=== PATIENT | male | born 1965 | race Asian ===

== ENCOUNTER 2021-02-22 12:36 | Emergency (ER) | payer OTHER ==
[~2021-02-22] VITALS: Ht 167.6 cm; Wt 68.2 kg
[~2021-02-22 12:36] MED LIST: CARB200T6 PO; PHEN100C23 PO
[2021-02-22] MEDS ORDERED: PERTUSS(ACELL),DIPH,TET VAC/PF 0.5 ML SYRINGE IM. ONE (13:00)
[2021-02-22 14:12] VITALS: BP 129/76
== END 2021-02-22 14:20 | disposition home or self-care (01) ==
LOC: EMS 12:38
DX: S05.32XA Ocular laceration without prolapse or loss of intraocular tissue, left eye, initial encounter (principal); S05.31XA Ocular laceration without prolapse or loss of intraocular tissue, right eye, initial encounter; R56.9 Unspecified convulsions; X58.XXXA Exposure to other specified factors, initial encounter; Y93.89 Activity, other specified; Y92.89 Other specified places as the place of occurrence of the external cause; Y99.8 Other external cause status
CPT/HCPCS: 12011; 70450; 90471; 90715; 99284

== ENCOUNTER 2021-12-19 17:56 | Inpatient (IN) | payer OTHER ==
[~2021-12-19] VITALS: Ht 162.6 cm; Wt 65.9 kg
[~2021-12-19 17:56] MED LIST changes: +PHEN100C9 PO
[2021-12-19] MEDS ORDERED: SODIUM CHLORIDE 0.9% 1,000 ML IV ONE (18:00)
[2021-12-19] MEDS ORDERED: LevETIRAcetam 1,000 MG in DEXTROSE 5%-WATER 100 ML IV ONE (18:00)
[2021-12-19] MEDS ORDERED: LORazepam 2 MG/ML VIAL IVP ONE ×2 (18:00→20:15)
[2021-12-19 18:14] LABS: BASOPHILS % (AUTO) 0.4 % (0.0-2.0); EOSINOPHILS % (AUTO) 0.1 % (1.0-6.0); HEMATOCRIT 38.1 % (41-53); HEMOGLOBIN 12.4 g/dL (13.5-17.5); LYMPHOCYTES # (AUTO) 2.4 K/uL (1.0-4.8); LYMPHOCYTES % (AUTO) 18.5 % (22.0-44.0); MEAN CORPUSCULAR HEMOGLOBIN 30.3 pg (26.0-34.0); MEAN CORPUSCULAR HGB CONC 32.6 G/dL (31.0-37.0); MEAN CORPUSCULAR VOLUME 93 fL (80-100); MONOCYTES # (AUTO) 0.8 K/uL (0.1-1.0); MONOCYTES % (AUTO) 6.4 % (2.0-9.0); NEUTROPHILS # (AUTO) 9.7 K/uL (1.8-7.7); NEUTROPHILS % (AUTO) 74.6 % (40.0-70.0); PLATELET COUNT (AUTO) 391 K/uL (150-450); RED CELL DISTRIBUTION WIDTH 13.5 % (11.5-14.5)
[2021-12-19 18:22] LABS: ANION GAP 21 mmol/L (8-16); CALCIUM, TOTAL 9.4 mg/dL (8.8-10.5); CARBON DIOXIDE 18 mmol/L (22-29); CHLORIDE 97 mmol/L (98-107); CREATININE 1.24 mg/dL (0.60-1.30); GLOMERULAR FILTR. RATE CALC 60 mL/min (>60); GLUCOSE,RANDOM 167 mg/dL (70-110); POTASSIUM 3.6 mmol/L (3.5-5.1); SODIUM SERUM 136 mmol/L (136-145); UREA NITROGEN, BLOOD 18 mg/dL (7-18)
[2021-12-19 18:28] LABS: ALANINE AMINOTRANSFERASE 28 U/L (12-78); ALBUMIN 3.7 g/dL (3.4-5.0); ALKALINE PHOSPHATASE 144 U/L (46-116); ASPARTATE AMINOTRANSFERASE 25 U/L (15-37); BILIRUBIN,TOTAL 0.2 mg/dL (0.1-1.0); CARBAMAZEPINE (TEGRETOL) 5.2 mcg/mL (4.0-12.0); LIPASE 163 U/L (73-393); TOTAL PROTEIN, SERUM 8.4 g/dL (6.4-8.2)
[2021-12-19 18:36] LABS: PHENYTOIN (DILANTIN) 0.5 mcg/mL (10.0-20.0)
[2021-12-19 18:49] LABS: COVID AG,FIA SOURCE NASOPHARYNGEAL
[2021-12-19] MEDS ORDERED: ACETAMINOPHEN 325 MG TABLET PO PRN (19:45)
[2021-12-19] MEDS ORDERED: PHENYTOIN SODIUM 1,000 MG in SODIUM CHLORIDE 0.9% 150 ML IV ONE (19:45)
[2021-12-19] MEDS ORDERED: ONDANSETRON HCL 4 MG/2 ML VIAL IVP PRN (19:45)
[2021-12-19] MEDS ORDERED: 0.9% SODIUM CHLORIDE 10 ML SYRINGE IVP PRN (19:45)
[2021-12-19] MEDS: LORazepam 2 MG/ML VIAL IVP ONE ×2 (20:11→20:39)
[2021-12-19] MEDS: CarBAMazepine 200 MG TABLET PO SCH (21:00)
[2021-12-19] MEDS ORDERED: MIDAZOLAM HCL 5 MG/ML VIAL IVP ONE (21:00)
[2021-12-19 23:17] LABS: APPEARANCE,URINE CLEAR (CLEAR); BILIRUBIN,URINE NEGATIVE (NEGATIVE); GLUCOSE, URINE (UA) NEGATIVE (NEGATIVE); KETONES,URINE NEGATIVE (NEGATIVE); LEUKOCYTE ESTERASE ,URINE NEGATIVE (NEGATIVE); NITRATE,URINE NEGATIVE (NEGATIVE); OCCULT BLOOD,URINE NEGATIVE (NEGATIVE); PH,URINE 6.5 (5.0-8.0); PROTEIN,URINE NEGATIVE (NEGATIVE); SPECIFIC GRAVITIY, URINE 1.005 (1.003-1.030); UROBILINOGEN,URINE <=1.0 mg/dL (<=1.0)
[2021-12-19 23:24] LABS: AMPHET/METH SCREEN,URINE NEGATIVE (NEGATIVE); BARBITURATE SCREEN, URINE NEGATIVE (NEGATIVE); BENZODIAZEPINES SCREEN,URINE POSITIVE (NEGATIVE); CANNABINOID SCREEN,URINE NEGATIVE (NEGATIVE); COCAINE SCREEN,URINE NEGATIVE (NEGATIVE); METHADONE SCREEN, URINE NEGATIVE (NEGATIVE); OPIATE SCREEN,URINE NEGATIVE (NEGATIVE)
[2021-12-19 23:43] LABS: PHENCYCLIDINE SCREEN,URINE NEGATIVE (NEGATIVE)
[2021-12-19 23:53] LABS: BACTERIA,URINE None Seen /HPF (None Seen); RBC,URINE None Seen /HPF (0-2); WBC,URINE None Seen /HPF (0-5)
[2021-12-20] MEDS ORDERED: INFLUENZA VIRUS VACCINE QVS 2021-22 (6MO+)/PF 60 MCG/0.5 ML SYRINGE IM. ONE (04:30)
[2021-12-20] MEDS ORDERED: PHENYTOIN SODIUM 100 MG ER CAPSULE PO SCH (09:00)
[2021-12-20 09:56] VITALS: BP 120/62
[2021-12-20] MEDS: CarBAMazepine 200 MG TABLET PO SCH ×3 (11:18→20:38)
[2021-12-20] MEDS ORDERED: IPRATROPIUM BROMIDE 0.5 MG/2.5 ML NEB SOLUTION NEB PRN (13:00)
[2021-12-20] MEDS ORDERED: ALBUTEROL SULFATE 2.5 MG/0.5 ML NEB SOLUTION NEB PRN (13:00)
[2021-12-20] MEDS ORDERED: ZOLPIDEM TARTRATE 5 MG TABLET PO PRN (13:00)
[2021-12-20] MEDS ORDERED: ONDANSETRON HCL 4 MG/2 ML VIAL IVP PRN (13:00)
[2021-12-20] MEDS ORDERED: BISACODYL 10 MG RECTAL RECTAL SUPPOSITORY PR PRN (13:00)
[2021-12-20] MEDS ORDERED: MAGNESIUM HYDROXIDE SUSPENSION 30 ML UDCUP PO PRN (13:00)
[2021-12-20] MEDS ORDERED: ACETAMINOPHEN 325 MG TABLET PO PRN (13:00)
[2021-12-20] MEDS ORDERED: LORazepam 2 MG/ML VIAL IVP PRN (13:00)
[2021-12-20] MEDS ORDERED: HYDROCODONE/ACETAMINOPHEN 5-325 MG TABLET PO PRN (13:00)
[2021-12-20] MEDS ORDERED: MORPHINE SULFATE 2 MG/ML SYRINGE IVP PRN (13:00)
[2021-12-20 13:43] VITALS: BP 110/63
[2021-12-20] MEDS: PHENYTOIN SODIUM 100 MG ER CAPSULE PO SCH (16:09)
[2021-12-20] MEDS: HEPARIN SODIUM,PORCINE 5,000 UNITS/ML VIAL SQ SCH ×2 (16:10→23:36)
[2021-12-20 16:56] VITALS: BP 108/62
[2021-12-20 20:34] VITALS: BP 116/80
[2021-12-20] MEDS: LevETIRAcetam 500 MG TABLET PO SCH (20:37)
[2021-12-21 00:30] VITALS: BP 126/70
[2021-12-21 04:00] VITALS: BP 121/76
[2021-12-21 08:35] VITALS: BP 119/74
[2021-12-21] MEDS: PANTOPRAZOLE SODIUM 40 MG/VIAL IVP SCH ×2 (09:00→09:50)
[2021-12-21] MEDS: HEPARIN SODIUM,PORCINE 5,000 UNITS/ML VIAL SQ SCH (09:50)
[2021-12-21] MEDS: CarBAMazepine 200 MG TABLET PO SCH (09:53)
[2021-12-21] MEDS: PHENYTOIN SODIUM 100 MG ER CAPSULE PO SCH (09:53)
[2021-12-21] MEDS: LevETIRAcetam 500 MG TABLET PO SCH (09:53)
[2021-12-21 12:00] VITALS: BP 123/81
[2021-12-21] MEDS ORDERED: LEVE500T8 PO (15:22)
[2021-12-21] MEDS ORDERED: PHENY100 PO (15:22)
[2021-12-21] MEDS ORDERED: CARB200T6 PO ×2 (15:27→15:30)
== END 2021-12-21 16:40 | disposition home or self-care (01) | DRG 53 ==
LOC: EMS 17:59 → 5N 21:59
PROVIDERS: ADMIT Hospitalist; ATTEND Hospitalist
DX: G40.909 Epilepsy, unspecified, not intractable, without status epilepticus (principal); Z20.822 Contact with and (suspected) exposure to COVID-19; Z79.899 Other long term (current) drug therapy
CPT/HCPCS: 70450; 71045; 80053; 80156; 80185; 81001; 83690; 84484; 85025; 93005; 99291; C9113; G0480; J0712; J1165; J1644; J2060; J2250; J7030; J7050; J7060; 36415-L1; 36415-TC

== ENCOUNTER 2022-04-22 20:48 | Emergency (ER) | payer OTHER ==
[~2022-04-22] VITALS: Ht 162.6 cm; Wt 61.4 kg
[~2022-04-22 20:48] MED LIST changes: +LEVE500T8 PO; -PHEN100C23 PO; -PHEN100C9 PO; +PHENY100 PO
[2022-04-22] MEDS ORDERED: SODIUM CHLORIDE 0.9% 1,000 ML IV ONE (22:15)
[2022-04-22] MEDS ORDERED: LevETIRAcetam 1,000 MG in DEXTROSE 5%-WATER 100 ML IV ONE (22:45)
[2022-04-22 22:55] LABS: BASOPHILS % (AUTO) 0.3 % (0.0-2.0); EOSINOPHILS % (AUTO) 0.1 % (1.0-6.0); HEMATOCRIT 40.7 % (41-53); HEMOGLOBIN 13.3 g/dL (13.5-17.5); LYMPHOCYTES # (AUTO) 1.1 K/uL (1.0-4.8); LYMPHOCYTES % (AUTO) 19.9 % (22.0-44.0); MEAN CORPUSCULAR HEMOGLOBIN 29.2 pg (26.0-34.0); MEAN CORPUSCULAR HGB CONC 32.6 G/dL (31.0-37.0); MEAN CORPUSCULAR VOLUME 90 fL (80-100); NEUTROPHILS # (AUTO) 3.3 K/uL (1.8-7.7); NEUTROPHILS % (AUTO) 61.7 % (40.0-70.0); PLATELET COUNT (AUTO) 196 K/uL (150-450); RED BLOOD CELL COUNT(AUTO) 4.55 MIL/uL (4.50-5.90); RED CELL DISTRIBUTION WIDTH 13.6 % (11.5-14.5)
[2022-04-22 22:56] LABS: ANION GAP 3 mmol/L (8-16); CALCIUM, TOTAL 8.1 mg/dL (8.8-10.5); CARBON DIOXIDE 30 mmol/L (22-29); CHLORIDE 107 mmol/L (98-107); GLUCOSE,RANDOM 106 mg/dL (70-110); SODIUM SERUM 140 mmol/L (136-145); UREA NITROGEN, BLOOD 20 mg/dL (7-18)
[2022-04-22 23:03] LABS: GLOMERULAR FILTR. RATE CALC > 60 mL/min (>60)
[2022-04-22 23:11] LABS: ALANINE AMINOTRANSFERASE 61 U/L (12-78); ALBUMIN 3.2 g/dL (3.4-5.0); ALKALINE PHOSPHATASE 97 U/L (46-116); ASPARTATE AMINOTRANSFERASE 103 U/L (15-37); BILIRUBIN,TOTAL 0.1 mg/dL (0.1-1.0); TOTAL PROTEIN, SERUM 6.6 g/dL (6.4-8.2)
[2022-04-22 23:42] VITALS: BP 100/58
[2022-04-23] MEDS ORDERED: PHENY100 PO
[2022-04-23] MEDS ORDERED: CARB200T6 PO
[2022-04-23] MEDS ORDERED: LEVE500T8 PO
== END 2022-04-23 00:20 | disposition home or self-care (01) ==
LOC: EMS 20:52
DX: G40.89 Other seizures (principal); Z86.69 Personal history of other diseases of the nervous system and sense organs
CPT/HCPCS: 99284; 96365; 80053; 85025; 36415; J0712; J7060

== ENCOUNTER 2022-06-22 03:08 | Emergency (ER) | payer OTHER ==
[~2022-06-22] VITALS: Ht 162.6 cm; Wt 63.0 kg
[2022-06-22] MEDS ORDERED: LevETIRAcetam 1,000 MG in DEXTROSE 5%-WATER 100 ML IV ONE (03:15)
[2022-06-22 03:33] LABS: BASOPHILS % (AUTO) 0.2 % (0.0-2.0); EOSINOPHILS % (AUTO) 3.7 % (1.0-6.0); HEMATOCRIT 38.5 % (41-53); HEMOGLOBIN 12.6 g/dL (13.5-17.5); LYMPHOCYTES # (AUTO) 2.4 K/uL (1.0-4.8); LYMPHOCYTES % (AUTO) 22.7 % (22.0-44.0); MEAN CORPUSCULAR HEMOGLOBIN 29.6 pg (26.0-34.0); MEAN CORPUSCULAR HGB CONC 32.7 G/dL (31.0-37.0); MEAN CORPUSCULAR VOLUME 91 fL (80-100); MONOCYTES % (AUTO) 9.5 % (2.0-9.0); NEUTROPHILS # (AUTO) 6.9 K/uL (1.8-7.7); NEUTROPHILS % (AUTO) 63.9 % (40.0-70.0); PLATELET COUNT (AUTO) 295 K/uL (150-450); RED BLOOD CELL COUNT(AUTO) 4.25 MIL/uL (4.50-5.90); RED CELL DISTRIBUTION WIDTH 14.6 % (11.5-14.5)
[2022-06-22 03:38] LABS: ANION GAP 6 mmol/L (8-16); CALCIUM, TOTAL 8.6 mg/dL (8.8-10.5); CARBON DIOXIDE 29 mmol/L (22-29); CHLORIDE 105 mmol/L (98-107); CREATININE 1.07 mg/dL (0.60-1.30); GLUCOSE,RANDOM 128 mg/dL (70-110); POTASSIUM 4.4 mmol/L (3.5-5.1); SODIUM SERUM 140 mmol/L (136-145); UREA NITROGEN, BLOOD 16 mg/dL (7-18)
[2022-06-22 03:40] LABS: GLOMERULAR FILTR. RATE CALC > 60 mL/min (>60)
[2022-06-22 03:46] LABS: ALANINE AMINOTRANSFERASE 32 U/L (12-78); ALBUMIN 3.6 g/dL (3.4-5.0); ALKALINE PHOSPHATASE 108 U/L (46-116); ASPARTATE AMINOTRANSFERASE 25 U/L (15-37); BILIRUBIN,TOTAL 0.2 mg/dL (0.1-1.0); CARBAMAZEPINE (TEGRETOL) 6.8 mcg/mL (4.0-12.0); CREATINE KINASE, TOTAL ONLY 200 U/L (39-308); PHENYTOIN (DILANTIN) 5.1 mcg/mL (10.0-20.0); TOTAL PROTEIN, SERUM 7.4 g/dL (6.4-8.2)
[2022-06-22 04:08] LABS: APPEARANCE,URINE CLEAR (CLEAR); BILIRUBIN,URINE NEGATIVE (NEGATIVE); GLUCOSE, URINE (UA) NEGATIVE (NEGATIVE); KETONES,URINE NEGATIVE (NEGATIVE); LEUKOCYTE ESTERASE ,URINE NEGATIVE (NEGATIVE); NITRATE,URINE NEGATIVE (NEGATIVE); OCCULT BLOOD,URINE NEGATIVE (NEGATIVE); PH,URINE 5.5 (5.0-8.0); PROTEIN,URINE NEGATIVE (NEGATIVE); SPECIFIC GRAVITIY, URINE 1.014 (1.003-1.030); UROBILINOGEN,URINE <=1.0 mg/dL (<=1.0)
[2022-06-22 04:17] LABS: AMPHET/METH SCREEN,URINE NEGATIVE (NEGATIVE); BARBITURATE SCREEN, URINE NEGATIVE (NEGATIVE); BENZODIAZEPINES SCREEN,URINE NEGATIVE (NEGATIVE); CANNABINOID SCREEN,URINE NEGATIVE (NEGATIVE); COCAINE SCREEN,URINE NEGATIVE (NEGATIVE); METHADONE SCREEN, URINE NEGATIVE (NEGATIVE); OPIATE SCREEN,URINE NEGATIVE (NEGATIVE)
[2022-06-22 04:20] LABS: B-TYPE NATRIURETIC PEPTIDE 16 pg/mL (0-100)
[2022-06-22 04:21] LABS: PHENCYCLIDINE SCREEN,URINE NEGATIVE (NEGATIVE)
[2022-06-22] MEDS ORDERED: PHENY100 PO (05:07)
[2022-06-22] MEDS ORDERED: CARB100 PO (05:07)
[2022-06-22] MEDS ORDERED: LEVE500T20 PO (05:07)
[2022-06-22 07:26] VITALS: BP 126/82
== END 2022-06-22 08:28 | disposition home or self-care (01) ==
LOC: EMS 03:08
DX: R56.9 Unspecified convulsions (principal)
CPT/HCPCS: 70450; 72125; 80053; 80156; 80185; 81003; 82550; 83880; 84484; 85025; 93005; 96365; 99285; G0480; G0482; J0712; J7060

== ENCOUNTER 2022-12-24 12:52 | Emergency (ER) | payer OTHER ==
[~2022-12-24] VITALS: Ht 162.6 cm; Wt 57.3 kg
[~2022-12-24 12:52] MED LIST changes: -LEVE500T8 PO
[2022-12-24 13:25] LABS: COVID AG,FIA SOURCE NASAL SWAB
[2022-12-24 14:05] LABS: INFLUENZA TYPE A NEGATIVE FOR TYPE A (NEGATIVE); INFLUENZA TYPE B NEGATIVE FOR TYPE B (NEGATIVE)
[2022-12-24 15:17] VITALS: BP 127/71
== END 2022-12-24 15:33 | disposition home or self-care (01) ==
LOC: EMS 13:31
DX: Z01.84 Encounter for antibody response examination (principal); Z20.822 Contact with and (suspected) exposure to COVID-19
CPT/HCPCS: 99283; 87426; 87804; C9803